=== PATIENT | female | born 1935 | race Caucasian/White ===

== ENCOUNTER → 2016-03-05 | Outpatient (CLI) | payer OTHER ==
[~2016-03-05] MED LIST: BENTYL10 MG PO; CALCIUM 500 +1 EAC4 PO; CELEBREX 200 M200 MG PO; CELEXA 20 MG TA20 M1 PO; EVOXAC30 MG PO; FISH OIL 1,0001 EAC5 PO; FLEXERIL PO; LEVOTHYROXINE0.2 M1 PO; MULTIVITAMINS PO; NORCO 5-325 TA1 EACH PO; OMEPRAZOLE20 MG PO; PLAVIX 75 MG TA75 MG PO; SYNTHROID175 MCG PO; TRIAMTERENE-HC1 EAC1 PO; VESICARE10 M1 PO; VYTORIN PO
== END ==
LOC: RAD 14:35
DX: M25.742 Osteophyte, left hand (principal); M25.542 Pain in joints of left hand

== ENCOUNTER → 2017-02-26 | Outpatient (CLI) | payer OTHER ==
[~2017-02-26] VITALS: Ht 154.9 cm; Wt 61.2 kg
[~2017-02-26] MED LIST changes: +CARDIZEM CD180 MG PO; +LEVOTHYROXINE200 MC1 PO; +SAVAYSA30 MG PO; +VYTORIN 10-101 EACH PO; -VYTORIN PO
--- NOTE | ~2017-02-26 | S ---
[facility] [place] [address] SURGICAL PATH RPT PROCEDURE Name: LIT PILLAI Room #: REG DONTE Garcia.#: [id number] Admission: 02/26/17 Date of : 33 Discharge: Report #: [id number] Path Case #: [id number] PATHOLOGY REPORT COLLECTION DATE: 02/26/2017 RECEIVED DATE: 02/26/2017 SUBMITTING PHYS: Dr. Darwin Nuno OTHER PHYS: Dr. Casey Camargo SPECIMEN(S) RECEIVED: A.Colon bx R/O microscopic colitis * * * * * * * * * * * * FINAL DIAGNOSIS: "Colon biopsy rule out microscopic colitis," biopsy: - Colonic mucosa with mild reactive changes and focal active colitis including focal subepithelial karyorrhectic debris. (see comment) COMMENT: Focal active colitis can be seen in resolving infectious type colitis, incidentally with bowel preparation, and quiescent chronic idiopathic inflammatory bowel disease. No increased chronic inflammation or chronic architectural changes are identified. No pathologic organisms are noted. The clinical significance of the subepithelial karyorrhectic debris is unclear and can be seen in entities such as bowel preparation, infections, ischemia and in the post-transplant setting, graft vs host disease. Clinical and endoscopic correlation is required. (TIERRAW:; 02/27/2017) PATHOLOGIST: Chelly Pires M.D. REPORT ELECTRONICALLY SIGNED BY: Chelly Pires M.D. DATE/TIME: 02/27/2017 13:26 * * * * * * * * * * * * GROSS PATHOLOGY: Received in formalin labeled "Lit Pillai, colon BX, rule out microscopic colitis," are 4 segments of contreras soft tissue measuring 1.3 x 1.1 x 0.3 cm in aggregate dimensions and ranging from 0.2 to 0.3 cm in maximum dimension. The specimen is submitted entirely in cassette A1. (TSD; 02/26/2017) CLINICAL HISTORY: Pre-OP DX: Positive occult stool [facility] [place] [address] SURGICAL PATH RPT PROCEDURE Name: LIT PILLAI Yossi Room #: [facility].#: [id number] Admission: 02/26/17 Date of : 33 Discharge: Report #: [id number] Path Case #: [id number] Post-OP DX: Diverticulosis, colon polyp, rectal bleed INITIAL CPT CODE(S): A; 40838 Professional services performed by [facility] at [address] , [place] [address] Technical services performed by [facility] at [address] [place] [address], [facility] [address] [place] [address]. [facility] [address] [address] PHONE: [phone] DIRECTOR: Jose Jimenez M.D. * * * END OF REPORT * * *
== END | disposition home or self-care (01) ==
LOC: GI 12-04 12:14
DX: K62.1 Rectal polyp (principal); K57.30 Diverticulosis of large intestine without perforation or abscess without bleeding; K52.9 Noninfective gastroenteritis and colitis, unspecified; K64.8 Other hemorrhoids; I10 Essential (primary) hypertension; I48.91 Unspecified atrial fibrillation; E78.00 Pure hypercholesterolemia, unspecified; K21.9 Gastro-esophageal reflux disease without esophagitis; E03.9 Hypothyroidism, unspecified; M19.90 Unspecified osteoarthritis, unspecified site; M79.7 Fibromyalgia; F32.89 Other specified depressive episodes; F41.8 Other specified anxiety disorders; Z87.891 Personal history of nicotine dependence; Z88.8 Allergy status to other drugs, medicaments and biological substances; Z79.899 Other long term (current) drug therapy; Z98.890 Other specified postprocedural states; Z88.2 Allergy status to sulfonamides; Z90.710 Acquired absence of both cervix and uterus
CPT/HCPCS: 62110; 62900; 70005

== ENCOUNTER → 2019-11-03 | Outpatient (CLI) | payer OTHER | LOC: SJCVC 15:03 → SJCVCIMAG 15:03 | PROVIDERS: ATTEND Internal Medicine Cardiovascular Disease | DX: I08.8 Other rheumatic multiple valve diseases (principal); I11.9 Hypertensive heart disease without heart failure; R94.31 Abnormal electrocardiogram [ECG] [EKG]; I25.10 Atherosclerotic heart disease of native coronary artery without angina pectoris; I48.21 Permanent atrial fibrillation; E78.00 Pure hypercholesterolemia, unspecified; I42.9 Cardiomyopathy, unspecified; Z79.899 Other long term (current) drug therapy; Z87.891 Personal history of nicotine dependence ==

== ENCOUNTER → 2020-05-31 | Outpatient (CLI) | payer OTHER | LOC: SJCVC 12:33 | PROVIDERS: ATTEND Internal Medicine Cardiovascular Disease | DX: R94.31 Abnormal electrocardiogram [ECG] [EKG] (principal); I48.91 Unspecified atrial fibrillation; I10 Essential (primary) hypertension; E78.00 Pure hypercholesterolemia, unspecified; I42.9 Cardiomyopathy, unspecified; D68.59 Other primary thrombophilia; I38 Endocarditis, valve unspecified; R06.02 Shortness of breath; E03.9 Hypothyroidism, unspecified; Z79.82 Long term (current) use of aspirin; Z79.899 Other long term (current) drug therapy; Z87.891 Personal history of nicotine dependence; Z88.8 Allergy status to other drugs, medicaments and biological substances; Z88.2 Allergy status to sulfonamides; Z88.1 Allergy status to other antibiotic agents ==